=== PATIENT | male | born 1955 | race Caucasian/White ===

== ENCOUNTER 2017-10-15 08:00 | Outpatient (RCR) | payer OTHER, SELFPAY ==
--- NOTE | 2017-09-18 09:28 | HP.PTEVAL ---
Patient's Visit Information ADOLFO KURTZ is a 61 year old M referred to Physical Therapy by ЕКАТЕРИНА WHITE with a diagnosis of BILATERAL KNEE REPLACEMNENTS. Date of Evaluation: 09/18/17 Physical Therapist: Amado Frost, PT, - Visit Plan Frequency: 2x /Week Duration: 8WEEKS Plan: AROM,FLEXABLITY ,PRE'S QUADS/HAMS ,NUSTEP/BIKE,CP ,BALANCE GAIT - Subjective Subjective: This 61 y/o male presenst with s/p bilateral knee replacements on Aug at [facility] done by DR Caban. Patient has had progressive DJD bilateral knees for 2 years.Tried coritizone injection. Patient d/c to home Aug 20 with home PT Sep 10 progressed to cane with HEP. Patient has limiations with ADL'S and housework tasks. Stairs one step at time with cane. Patient c/o parathesia/tingling. Most difficulty with elevation from chair.Sleeping okay at night 3 hours. HOME SITUATION: guanaco style home with walk in shower shower seat. VOCATION: retired. SOCIAL: - Pain Bilateral Knee Pain Intensity (Out of 10): 3 Pain Intensity Range: 10 - Objective POSTURE: mild foward posture. GAIT: slow cadance reciprocal pattern decrease stance time and swing phase. SKIN: inscision well approximate. NEURO: c/o parathesia knee ,light touch diminished. BALANCE: GOOD - WITH CANE. STAIRS: ascend/desecnd 12 steps with cane rail. AROM: L- 2-120 Degrees ,R- 2-110 Degrees supine knee flexion. MMT: quads/hams/hip 4-/5,ankle 4/5. FLEXABLITY: hams min tight. - HOMMANS - Goals Goal 1:: Independant with HEP. Goal Time Frame: 6-8 Weeks Goal 2:: Patient to improve strength quads/hams/hip 4/5 to improve function and elevation from shair with ease. Goal Time Frame: 6-8 Weeks Goal 3:: Patient increase AROM knee flexion 0-120 degrees or greater to improve ateranating stairs. Goal Time Frame: 6-8 Weeks Goal 4:: Patient ambulate with reciprocal patttern ,stride length and swing phase at community distances with good balance Goal Time Frame: 6-8 Weeks Goal 5:: Patient ascend/descend 12 steps aternating with rail Goal Time Frame: 6-8 Weeks - Rehabilitation Potential Physical Therapy Diagnosis: This 61 y/o male presnest to physical therapy with BILATERAL TKR with decrease strength ,ROM ,gait,balance impairs ADL'S and function thus benifit from skilled PT Rehabilitation Potential: Good - Anticipated Interventions Patient/Client Instruction: Educate patient on: Condition, Plan of Care For the Purpose of:: To decrease pain, To increase ROM, To improve muscle performance and motor function, To improve ability to perform ADL's, To increase tolerance to activity/condition/position, To improve ability of physical actions for home/community/work/leisure, To improve gait and locomotor functions, To improve health of tissue, To decrease soft tissue restriction, To increase flexibility/ROM, To improve balance, To improve safety with gait, To assume or resume ADL's, To improve health and function, To improve ability to perform tasks related to life management Therapeutic Exercise to Include: Strength training, Passive ROM, Active ROM For the Purpose of:: To decrease pain, To increase ROM, To improve muscle performance and motor function, To improve ability to perform ADL's, To increase tolerance to activity/condition/position, To decrease level of supervision to perform tasks, To improve health of tissue, To decrease soft tissue restriction, To increase flexibility/ROM, To improve balance, To improve safety with gait, To improve health and function, To improve ability to perform tasks related to life management Functional Training to Include: Gait training For the Purpose of:: To improve muscle performance and motor function, To improve ability to perform ADL's, To improve ability of physical actions for home/community/work/leisure, To improve gait and locomotor functions, To improve safety with gait Cryotherapy (ice pack, ice massage): Yes Thermo therapy (hot pack): Yes For the Purpose of:: To improve nutrient delivery to tissue, To increase oxygenation perfusion, To improve health of tissue, To decrease soft tissue restriction Thank you for the opportunity to evaluate your patient. For Medicare and Medicare HMO plans, please review the plan of care and approve it. It will need to be FAXED BACK to us at [phone] for Medicare purposes. Please let me know if there are questions or concerns regarding this plan of care. Physician Signature: Date:
--- NOTE | 2017-12-04 16:50 | HP.PTDCSUM ---
HP - PT D/C Summary It has been my pleasure to treat ADOLFO KURTZ under orders from SANDRA LONGO KAITLYN for the diagnosis of BILATERAL KNEE REPLACEMNENTS for a total of 9 visit(s). Discharge Date: Please see the following information for a summary of their discharge status. - Subjective Subjective: Doing good..Seen happy with progress - Pain Bilateral Knee Pain Intensity (Out of 10): 2 - Overall Improvement % Improvement: 90 - Objective Objective/Function: Arnulfo tx well ..doing well with ROM /strength. Progressing well ..MD happy with ROM - Goals Goal 1:: Independant with HEP. Goal 2:: Patient to improve strength quads/hams/hip 4/5 to improve function and elevation from shair with ease. Goal 3:: Patient increase AROM knee flexion 0-120 degrees or greater to improve ateranating stairs. Goal 4:: Patient ambulate with reciprocal patttern ,stride length and swing phase at community distances with good balance Goal 5:: Patient ascend/descend 12 steps aternating with rail - Plan Plan: AROM,FLEXABLITY ,PRE'S QUADS/HAMS ,NUSTEP/BIKE,CP ,BALANCE GAIT,flexablity - D/C Information If there are questions or concerns regarding this patient's physical therapy, please feel free to call me at [phone]. Thank you for the referral of this patient. Sincerely, Amado Frost, PT,
== END 2017-10-15 19:00 | disposition home or self-care (01) ==
LOC: PT 08:00
DX: Z96.653 Presence of artificial knee joint, bilateral (principal)
CPT/HCPCS: 97110; 97162

== ENCOUNTER → 2020-06-06 08:11 | Outpatient (CLI) | payer OTHER, SELFPAY ==
[2020-06-06 10:26] LABS: AST(SGOT) 23 U/L (15-37); Alanine Aminotransfer ALT/SGPT 50 U/L (16-61); Albumin, Serum 3.5 g/dL (3.2-5.0); Alkaline Phosphatase 81 U/L (45-117); Anion Gap 4 (5-15); BUN 16 mg/dL (7-18); BUN/Creat Ratio 14.3 RATIO (10-20); Calcium,Total 8.8 mg/dL (8.5-10.1); Chloride 107 mmol/L (98-107); Cholesterol 168 mg/dL (200); Creatinine, Serum 1.12 mg/dL (0.70-1.30); EST Glomerular Filtration Rate 70 mL/min (>60); Est Glom Filt Rate - Afr Amer 85 mL/min (>60); Globulin 3.6 g/dL (2.2-4.2); Glucose 132 mg/dL (74-106); High Density Lipoprotein 40 mg/dL; Protein, Total 7.1 g/dL (6.4-8.2); Sodium Level 139 mmol/L (136-145); Triglycerides 156 mg/dL; Very Low Density Lipoprotein 31 mg/dL (5-40)
== END ==
PROVIDERS: PCP Internal Medicine; Referring Provider Internal Medicine; Visit Provider Internal Medicine
DX: I10 Essential (primary) hypertension (principal); R73.01 Impaired fasting glucose; E78.5 Hyperlipidemia, unspecified; Z12.5 Encounter for screening for malignant neoplasm of prostate
CPT/HCPCS: 36415; 80053; 80061; 84153; G0103

== ENCOUNTER 2020-11-25 10:09 | Outpatient (RCR) | payer MEDICARE, SELFPAY ==
[2020-11-25] MEDS: COVID-19 VACC, MRNA(PFIZER)/PF 30 MCG/0.3 ML SYRINGE IM (16:02)
[2020-12-16] MEDS: COVID-19 VACC, MRNA(PFIZER)/PF 30 MCG/0.3 ML SYRINGE IM (15:50)
== END 2021-02-21 23:59 ==
LOC: IMMUN 10:09
PROVIDERS: PCP Internal Medicine; Visit Provider Family Medicine
DX: Z23 Encounter for immunization (principal)
CPT/HCPCS: 0001A; 0002A; 91300